=== PATIENT | female | born 1940 | race Caucasian/White ===

== ENCOUNTER 2023-02-06 15:48 | Emergency (ER) | payer MEDICARE, SELFPAY ==
--- NOTE | ~2023-02-06 | XR_ITS ---
EXAMINATION: XR CHEST CLINICAL INFORMATION: Chest pain COMPARISON: None available. TECHNIQUE: 2 views of the chest were obtained. FINDINGS: There is a biconvex thoracolumbar scoliosis present. The heart and pulmonary vessels appear normal. No infiltrates, effusions or lung masses are seen. XR/XR chest 2V IMPRESSION: No acute intrathoracic disease. Biconvex thoracolumbar scoliosis.
--- NOTE | ~2023-02-06 | XR_ITS ---
EXAMINATION: LEFT TIB-FIB, LEFT ANKLE, LEFT FOOT CLINICAL INFORMATION: Worsening diabetic ulcer medial ankle with heel ulcer and infection COMPARISON: Left ankle 08/05/2015 TECHNIQUE: 3 views left ankle, 3 views left foot, 2 views left tib-fib FINDINGS: Tib-fib: No significant bone or joint abnormality is seen. Ankle: No soft tissue swelling, fractures or dislocations are seen. No joint effusion. Left foot: Generalized osteopenia is seen. No fractures or dislocations. No bony destructive lesions seen to suggest osteomyelitis. There is a plantar calcaneal spur and an anterolisthesis at the insertion of the Achilles tendon. Findings are unchanged when compared to 08/05/2015. XR/XR ankle LT min 3V IMPRESSION: 1. No evidence of osteomyelitis. 2. Calcaneal spurs. 3. Generalized osteopenia. 4. No acute finding.
--- NOTE | ~2023-02-06 | XR_ITS ---
EXAMINATION: LEFT TIB-FIB, LEFT ANKLE, LEFT FOOT CLINICAL INFORMATION: Worsening diabetic ulcer medial ankle with heel ulcer and infection COMPARISON: Left ankle 08/05/2015 TECHNIQUE: 3 views left ankle, 3 views left foot, 2 views left tib-fib FINDINGS: Tib-fib: No significant bone or joint abnormality is seen. Ankle: No soft tissue swelling, fractures or dislocations are seen. No joint effusion. Left foot: Generalized osteopenia is seen. No fractures or dislocations. No bony destructive lesions seen to suggest osteomyelitis. There is a plantar calcaneal spur and an anterolisthesis at the insertion of the Achilles tendon. Findings are unchanged when compared to 08/05/2015. XR/XR tibia fibula LT 2V IMPRESSION: 1. No evidence of osteomyelitis. 2. Calcaneal spurs. 3. Generalized osteopenia. 4. No acute finding.
--- NOTE | ~2023-02-06 | XR_ITS ---
EXAMINATION: LEFT TIB-FIB, LEFT ANKLE, LEFT FOOT CLINICAL INFORMATION: Worsening diabetic ulcer medial ankle with heel ulcer and infection COMPARISON: Left ankle 08/05/2015 TECHNIQUE: 3 views left ankle, 3 views left foot, 2 views left tib-fib FINDINGS: Tib-fib: No significant bone or joint abnormality is seen. Ankle: No soft tissue swelling, fractures or dislocations are seen. No joint effusion. Left foot: Generalized osteopenia is seen. No fractures or dislocations. No bony destructive lesions seen to suggest osteomyelitis. There is a plantar calcaneal spur and an anterolisthesis at the insertion of the Achilles tendon. Findings are unchanged when compared to 08/05/2015. XR/XR foot LT min 3V IMPRESSION: 1. No evidence of osteomyelitis. 2. Calcaneal spurs. 3. Generalized osteopenia. 4. No acute finding.
--- NOTE | 2023-02-06 15:51 | ECG_ITS ---
Test Reason : CHEST PAIN Blood Pressure : / mmHG Vent. Rate : 088 BPM Atrial Rate : 088 BPM P-R Int : 154 ms QRS Dur : 084 ms QT Int : 334 ms P-R-T Axes : 097 030 064 degrees QTc Int : 404 ms Normal sinus rhythm Nonspecific ST abnormality Abnormal ECG When compared with ECG of 28-SEP-2017 19:22, Vent. rate has decreased BY [address] less depressed in Anterior leads Nonspecific T wave abnormality no longer evident in Inferior leads Nonspecific T wave abnormality, improved in Lateral leads Referred By: Generic ED Physician Electronically Signed By:SUMAN SEO MD
--- NOTE | 2023-02-06 16:03 | ED_ITS ---
HPI - General Adult General Chief complaint: Chest Pain Stated complaint: CP, headache, L Foot ulcer Time Seen by Provider: 02/06/23 16:25 Related Data Previous Rx's Medication Instructions Recorded doxycycline monohydrate 100 mg 100 mg PO BID cellulitis 10 days 02/06/23 capsule #20 caps Allergies Allergy/AdvReac Type Severity Reaction Status Date / Time metformin [METFORMIN] Allergy Unknown UNKNOWN Verified 02/06/23 16:10 omeprazole Allergy Unknown Unknown Verified 02/06/23 16:10 PMF Social History Social History Alcohol intake: never Smoked in Last 30 Days: No Use of substances other than those prescribed or required for medical reasons: No Advance Directives: No Advance Directives Information Provided: No Physical Exam ED Vital Signs: BMI result Body Mass Index 19.5 Course Course Course Narrative: RME - 82 yo female with history of HTN, DM, chronic foot ulcer on the left currently on amoxicillin, hx CVA, hx heart problems, who presents to the ER for evaluation of chest pain that started today. Has been under worsening stress with her son on hospice. Also has worsening ulcer on the foot w/ drainage despite being on abx. BP 209/119 w/ HR 160 in triage. Meds reviewed - not on anticoagulation, takes cardizem Plan: bring back to treatment room XR ankle to assess for osteo, labs, CXR, repeat EKG- pulse confirmed w/ palpation in triage Reevaluation(s) Reevaluation #1: see Dr. Dwyer's note for full assessment and treatment Medications Administered Discontinued Medications Generic Name Dose Route Start Last Admin Trade Name Freq PRN Reason Stop Dose Admin Bacitracin 1 appl 02/06/23 20:03 02/06/23 20:29 Bacitracin Oint 14 Gm Tube TOPICAL 02/06/23 20:04 1 appl ONCE ONE Administration Protocol Diltiazem HCl 10 mg 02/06/23 16:36 02/06/23 16:39 Diltiazem Hcl 50 Mg/10 Ml Vial IVPUSH 02/06/23 16:37 10 mg STAT STA Administration Cefazolin Sodium 1 gm/ Sodium 50 mls @ 100 mls/hr 02/06/23 18:29 02/06/23 19:39 Chloride IV 02/06/23 18:58 Infused ONCE ONE Infusion Vancomycin HCl 1,000 mg/ 270 mls @ 270 mls/hr 02/06/23 18:29 02/06/23 20:28 Sodium Chloride IV 02/06/23 19:28 Infused ONCE ONE Infusion Metoprolol Tartrate 5 mg 02/06/23 16:59 02/06/23 17:03 Metoprolol Tartrate 5 Mg/5 Ml Vial IVPUSH 02/06/23 17:00 5 mg ONCE ONE Administration Medical Decision Making Lab Data 02/06/23 16:25 02/06/23 16:25 Labs: Lab Results 02/06/23 02/06/23 02/06/23 Range/Units 16:24 16:25 16:44 WBC 7.7 (4.8-10.8) X10*3/uL RBC 3.47 L (4.20-5.50) X10*6/uL Hgb 10.4 L (12.0-16.0) g/dl Hct 32.3 L (37.0-47.0) % MCV 93.1 (80.0-98.0) fL MCH 30.0 (27.0-33.0) pg MCHC 32.2 (31.0-35.0) g/dl RDW 12.9 (11.0-16.0) % Plt Count 214 (160-400) X10*3/uL MPV 10.6 (9.4-12.3) fL Immature Gran % (Auto) 0.3 (0.0-0.4) % Neut % (Auto) 61.0 (45-73) % Lymph % (Auto) 30.9 (20-40) % [place] % (Auto) 6.8 (2-11) % Eos % (Auto) 0.7 (0-4) % Baso % (Auto) 0.3 (0-2) % Lymph # (Auto) 2.4 (1.2-4.9) X10*3/uL [place] # (Auto) 0.5 (0.1-1.2) X10*3/uL Eos # (Auto) 0.1 (0.0-0.4) X10*3/uL Baso # (Auto) 0.0 (0.0-0.2) X10*3/uL Abs Immat Gran (auto) 0.02 (0.00-0.03) X10*3/uL Absolute Neuts (auto) 4.7 (2.0-8.3) x10*3/uL Absolute Nucleated RBC 0.000 (0.0-0.012) X10*3/uL Nucleated RBC % (auto) 0.0 (0.0-0.2) /100WBC ESR 54 H (0-20) MM/HR PT 11.1 (11.1-13.3) SEC INR 0.9 (0.9-1.1) Sodium 138 (135-145) mmol/L Potassium 3.9 (3.3-5.1) mmol/L Chloride 105 (96-108) mmol/L Carbon Dioxide 23 (22-29) mmol/L Anion Gap 14 (12-20) BUN 27 H (9-16) mg/dL Creatinine 1.35 (0.5-1.4) mg/dL Estim Creat Clear Calc 26.2 Estimated GFR 38 Random Glucose 217 H (60-115) mg/dL Lactic Acid 1.0 (0.5-2.0) mmol/L Calcium 10.1 (8.4-10.2) mg/dL Magnesium 2.0 (1.6-2.6) mg/dL Total Bilirubin 0.3 (0.0-1.0) mg/dL Direct Bilirubin 0.2 (0.0-0.5) mg/dL AST 17 (5-31) U/L ALT 10 (0-31) U/L Alkaline Phosphatase 80 (39-117) U/L Troponin I High Sens 43.3 H (<3.5-17.0) ng/L Total Protein 8.7 H (6.5-8.0) g/dL Albumin 4.1 (3.5-5.0) g/dL TSH 1.16 (0.32-4.0) uIU/mL Urine Color Urine Appearance Urine pH (5.0-9.0) Ur Specific [place] (1.005-1.025) Urine Protein (Neg-Trace) mg/dL Urine Glucose (UA) (Negative) mg/dL Urine Ketones (Negative) mg/dL Urine Blood (Negative) Urine Nitrite (Negative) Ur Leukocyte Esterase (Negative) Urine RBC (0-2) /HPF Urine WBC (0-5) /HPF Ur Squamous Epith Cells (0-2) /HPF Urine Bacteria (None Seen) Hyaline Casts (0-2) /LPF 02/06/23 02/06/23 Range/Units 17:57 18:31 WBC (4.8-10.8) X10*3/uL RBC (4.20-5.50) X10*6/uL Hgb (12.0-16.0) g/dl Hct (37.0-47.0) % MCV (80.0-98.0) fL MCH (27.0-33.0) pg MCHC (31.0-35.0) g/dl RDW (11.0-16.0) % Plt Count (160-400) X10*3/uL MPV (9.4-12.3) fL Immature Gran % (Auto) (0.0-0.4) % Neut % (Auto) (45-73) % Lymph % (Auto) (20-40) % [place] % (Auto) (2-11) % Eos % (Auto) (0-4) % Baso % (Auto) (0-2) % Lymph # (Auto) (1.2-4.9) X10*3/uL [place] # (Auto) (0.1-1.2) X10*3/uL Eos # (Auto) (0.0-0.4) X10*3/uL Baso # (Auto) (0.0-0.2) X10*3/uL Abs Immat Gran (auto) (0.00-0.03) X10*3/uL Absolute Neuts (auto) (2.0-8.3) x10*3/uL Absolute Nucleated RBC (0.0-0.012) X10*3/uL Nucleated RBC % (auto) (0.0-0.2) /100WBC ESR (0-20) MM/HR PT (11.1-13.3) SEC INR (0.9-1.1) Sodium (135-145) mmol/L Potassium (3.3-5.1) mmol/L Chloride (96-108) mmol/L Carbon Dioxide (22-29) mmol/L Anion Gap (12-20) BUN (9-16) mg/dL Creatinine (0.5-1.4) mg/dL Estim Creat Clear Calc Estimated GFR Random Glucose (60-115) mg/dL Lactic Acid (0.5-2.0) mmol/L Calcium (8.4-10.2) mg/dL Magnesium (1.6-2.6) mg/dL Total Bilirubin (0.0-1.0) mg/dL Direct Bilirubin (0.0-0.5) mg/dL AST (5-31) U/L ALT (0-31) U/L Alkaline Phosphatase (39-117) U/L Troponin I High Sens 35.2 H (<3.5-17.0) ng/L Total Protein (6.5-8.0) g/dL Albumin (3.5-5.0) g/dL TSH (0.32-4.0) uIU/mL Urine Color Yellow Urine Appearance Clear Urine pH 6.5 (5.0-9.0) Ur Specific [place] 1.010 (1.005-1.025) Urine Protein 30 (1+) H (Neg-Trace) mg/dL Urine Glucose (UA) 100 H (Negative) mg/dL Urine Ketones Negative (Negative) mg/dL Urine Blood Small (1+) H (Negative) Urine Nitrite Negative (Negative) Ur Leukocyte Esterase Negative (Negative) Urine RBC 11-20 H (0-2) /HPF Urine WBC 0-5 (0-5) /HPF Ur Squamous Epith Cells 0-2 (0-2) /HPF Urine Bacteria None Seen (None Seen) Hyaline Casts 0-2 (0-2) /LPF Discharge Plan Discharge Clinical Impression: Cellulitis of foot, left, Chest pain, Regular sinus tachycardia Patient Disposition: Home, Self-Care Instructions: Chest Pain (DC), Cellulitis (DC), Tachycardia (ED) Additional Instructions: You were seen today after being found have elevated heart rate and chest pain. He does have the infection of her left foot. We got x-rays labs and medications heart rate is better controlled I think you been noncompliant with her medications. You need to take these regularly. If you have worsening chest pain or worsening flexion of the foot please return to the emergency department Prescriptions: New doxycycline monohydrate 100 mg capsule 100 mg PO BID 10 Days Qty: 20 0RF Interventions: ED Discharge Assessment Last Done: 02/06/23 20:36 Discharge Date/Time: 02/06/23 20:43
--- NOTE | 2023-02-06 16:03 | MHC.EDTECH ---
Patient ekg was taken in triage and was read by Provider .
[2023-02-06 16:04] VITALS: BP 209/119; PULSE 161; RESP 20; TEMP 36.3; O2SAT 100; BMI 19.5
--- NOTE | 2023-02-06 16:07 | ECG_ITS ---
Test Reason : SVT Blood Pressure : / mmHG Vent. Rate : 156 BPM Atrial Rate : 156 BPM P-R Int : 116 ms QRS Dur : 080 ms QT Int : 292 ms P-R-T Axes : 000 013 -55 degrees QTc Int : 470 ms Supraventricular tachycardia Nonspecific ST abnormality Abnormal QRS-T angle, consider primary T wave abnormality Abnormal ECG When compared with ECG of 06-FEB-2023 15:56, Vent. rate has increased BY [address] now depressed in Lateral leads Nonspecific T wave abnormality now evident in Inferior leads T wave amplitude has decreased in Lateral leads Referred By: Beata Treadwell Electronically Signed By:SUMAN SEO MD
--- NOTE | 2023-02-06 16:25 | ED_ITS ---
HPI - Chest Pain General Chief Complaint: Chest Pain Stated Complaint: CP, headache, L Foot ulcer Time Seen by Provider: 02/06/23 16:25 Source: patient and family Mode of arrival: ambulatory Limitations: no limitations History of Present Illness HPI narrative: 82-year-old female presents to emergency department with chest pain. She is going through issues with her son who is on hospice. She has been very anxious for the past month. Patient has been here for a week from [place]. Patient is on medications for hypertension hyperlipidemia and diabetes. She is listed to be allergic to metformin but is on it currently. Patient also has had an ulcer to her left heel for the past week. She has been under of lots of stress and didn't take her morning medications and took all her medications as she arrived here. Related Data Previous Rx's Medication Instructions Recorded doxycycline monohydrate 100 mg 100 mg PO BID cellulitis 10 days 02/06/23 capsule #20 caps Allergies Allergy/AdvReac Type Severity Reaction Status Date / Time metformin [METFORMIN] Allergy Unknown UNKNOWN Verified 02/06/23 16:10 omeprazole Allergy Unknown Unknown Verified 02/06/23 16:10 [facility] Social History Social History Alcohol intake: never Smoked in Last 30 Days: No Use of substances other than those prescribed or required for medical reasons: No Advance Directives: No Advance Directives Information Provided: No Physical Exam 2 Vital Signs: Vital Signs: Last Vital Signs Temp 98.9 F 02/06/23 16:41 Pulse 68 02/06/23 17:46 Resp 16 02/06/23 17:46 BP 159/70 H 02/06/23 17:46 Pulse Ox 98 02/06/23 17:46 O2 Del Method Room Air 02/06/23 17:46 BMI result Body Mass Index 19.5 General: Well-appearing well-nourished in no signs of distress HEENT: Normocephalic atraumatic Neck: No signs of JVD, no masses no tenderness or lymphadenopathy Cardiovascular: Irregularly irregular Respiratory: Clear to auscultation bilaterally Abdomen: Soft nontender no masses Extremities: Normal pedal pulses no signs of edema Skin: Dry warm no rashes Back: No tenderness full ROM Course Reevaluation(s) Reevaluation #1: Heart rate did not improve with the IV dose of diltiazem she is given oral and IV diltiazem done 5 mg of metoprolol and heart rate did go back to the 70s always has been in sinus tach. Patient is much more comfortable. I will continue with watching patient also had the patient on Ancef and vancomycin for the foot Reevaluation #2: 1912 repeat troponin is going down. HR improved still without chest pain. Medications Administered Discontinued Medications Generic Name Dose Route Start Last Admin Trade Name Lemuelq PRN Reason Stop Dose Admin Diltiazem HCl 10 mg 02/06/23 16:36 02/06/23 16:39 Diltiazem Hcl 50 Mg/10 Ml Vial IVPUSH 02/06/23 16:37 10 mg STAT STA Administration Cefazolin Sodium 1 gm/ Sodium 50 mls @ 100 mls/hr 02/06/23 18:29 02/06/23 19:08 Chloride IV 02/06/23 18:58 100 mls/hr ONCE ONE Administration Metoprolol Tartrate 5 mg 02/06/23 16:59 02/06/23 17:03 Metoprolol Tartrate 5 Mg/5 Ml Vial IVPUSH 02/06/23 17:00 5 mg ONCE ONE Administration Medical Decision Making Medical Decision Making [facility] Narrative: I will get a septic workup lactic blood cultures or was well as workup for cardiac and TSH. EKG one hour prior to being seen showed a HR of 88 nsr now sinus tachycardia of 156 Differential Diagnosis Differential Diagnoses: The differential diagnosis associated with the presentation includes Diabetic foot infection foot ulcer cellulitis atrial fibrillation chest pain ACS patient is not hypoxic less likely PE or pneumonia electrolyte abnormality dehydration Admission/Observation Consideration of admission/observation: Escalation of care including admission/observation considered I feel with improved troponin no more chest pain and medication non compliance I still feel she is safe to go home but educated to return if she gets worse. Consult Healthcare Provider Management of the patient was discussed with: Program Or Project Administrator Dr. Mckinney Lab Data [facility] Lab Attestation statement: I reviewed the patient's lab results. 02/06/23 16:25 02/06/23 16:25 Labs: Lab Results 02/06/23 02/06/23 02/06/23 Range/Units 16:24 16:25 16:44 WBC 7.7 (4.8-10.8) X10*3/uL RBC 3.47 L (4.20-5.50) X10*6/uL Hgb 10.4 L (12.0-16.0) g/dl Hct 32.3 L (37.0-47.0) % MCV 93.1 (80.0-98.0) fL MCH 30.0 (27.0-33.0) pg MCHC 32.2 (31.0-35.0) g/dl RDW 12.9 (11.0-16.0) % Plt Count 214 (160-400) X10*3/uL MPV 10.6 (9.4-12.3) fL Immature Gran % (Auto) 0.3 (0.0-0.4) % Neut % (Auto) 61.0 (45-73) % Lymph % (Auto) 30.9 (20-40) % [place] % (Auto) 6.8 (2-11) % Eos % (Auto) 0.7 (0-4) % Baso % (Auto) 0.3 (0-2) % Lymph # (Auto) 2.4 (1.2-4.9) X10*3/uL [place] # (Auto) 0.5 (0.1-1.2) X10*3/uL Eos # (Auto) 0.1 (0.0-0.4) X10*3/uL Baso # (Auto) 0.0 (0.0-0.2) X10*3/uL Abs Immat Gran (auto) 0.02 (0.00-0.03) X10*3/uL Absolute Neuts (auto) 4.7 (2.0-8.3) x10*3/uL Absolute Nucleated RBC 0.000 (0.0-0.012) X10*3/uL Nucleated RBC % (auto) 0.0 (0.0-0.2) /100WBC ESR 54 H (0-20) MM/HR PT 11.1 (11.1-13.3) SEC INR 0.9 (0.9-1.1) Sodium 138 (135-145) mmol/L Potassium 3.9 (3.3-5.1) mmol/L Chloride 105 (96-108) mmol/L Carbon Dioxide 23 (22-29) mmol/L Anion Gap 14 (12-20) BUN 27 H (9-16) mg/dL Creatinine 1.35 (0.5-1.4) mg/dL Estim Creat Clear Calc 26.2 Estimated GFR 38 Random Glucose 217 H (60-115) mg/dL Lactic Acid 1.0 (0.5-2.0) mmol/L Calcium 10.1 (8.4-10.2) mg/dL Magnesium 2.0 (1.6-2.6) mg/dL Total Bilirubin 0.3 (0.0-1.0) mg/dL Direct Bilirubin 0.2 (0.0-0.5) mg/dL AST 17 (5-31) U/L ALT 10 (0-31) U/L Alkaline Phosphatase 80 (39-117) U/L Troponin I High Sens 43.3 H (<3.5-17.0) ng/L Total Protein 8.7 H (6.5-8.0) g/dL Albumin 4.1 (3.5-5.0) g/dL TSH 1.16 (0.32-4.0) uIU/mL Urine Color Urine Appearance Urine pH (5.0-9.0) Ur Specific [place] (1.005-1.025) Urine Protein (Neg-Trace) mg/dL Urine Glucose (UA) (Negative) mg/dL Urine Ketones (Negative) mg/dL Urine Blood (Negative) Urine Nitrite (Negative) Ur Leukocyte Esterase (Negative) Urine RBC (0-2) /HPF Urine WBC (0-5) /HPF Ur Squamous Epith Cells (0-2) /HPF Urine Bacteria (None Seen) Hyaline Casts (0-2) /LPF 02/06/23 02/06/23 Range/Units 17:57 18:31 WBC (4.8-10.8) X10*3/uL RBC (4.20-5.50) X10*6/uL Hgb (12.0-16.0) g/dl Hct (37.0-47.0) % MCV (80.0-98.0) fL MCH (27.0-33.0) pg MCHC (31.0-35.0) g/dl RDW (11.0-16.0) % Plt Count (160-400) X10*3/uL MPV (9.4-12.3) fL Immature Gran % (Auto) (0.0-0.4) % Neut % (Auto) (45-73) % Lymph % (Auto) (20-40) % [place] % (Auto) (2-11) % Eos % (Auto) (0-4) % Baso % (Auto) (0-2) % Lymph # (Auto) (1.2-4.9) X10*3/uL [place] # (Auto) (0.1-1.2) X10*3/uL Eos # (Auto) (0.0-0.4) X10*3/uL Baso # (Auto) (0.0-0.2) X10*3/uL Abs Immat Gran (auto) (0.00-0.03) X10*3/uL Absolute Neuts (auto) (2.0-8.3) x10*3/uL Absolute Nucleated RBC (0.0-0.012) X10*3/uL Nucleated RBC % (auto) (0.0-0.2) /100WBC ESR (0-20) MM/HR PT (11.1-13.3) SEC INR (0.9-1.1) Sodium (135-145) mmol/L Potassium (3.3-5.1) mmol/L Chloride (96-108) mmol/L Carbon Dioxide (22-29) mmol/L Anion Gap (12-20) BUN (9-16) mg/dL Creatinine (0.5-1.4) mg/dL Estim Creat Clear Calc Estimated GFR Random Glucose (60-115) mg/dL Lactic Acid (0.5-2.0) mmol/L Calcium (8.4-10.2) mg/dL Magnesium (1.6-2.6) mg/dL Total Bilirubin (0.0-1.0) mg/dL Direct Bilirubin (0.0-0.5) mg/dL AST (5-31) U/L ALT (0-31) U/L Alkaline Phosphatase (39-117) U/L Troponin I High Sens 35.2 H (<3.5-17.0) ng/L Total Protein (6.5-8.0) g/dL Albumin (3.5-5.0) g/dL TSH (0.32-4.0) uIU/mL Urine Color Yellow Urine Appearance Clear Urine pH 6.5 (5.0-9.0) Ur Specific [place] 1.010 (1.005-1.025) Urine Protein 30 (1+) H (Neg-Trace) mg/dL Urine Glucose (UA) 100 H (Negative) mg/dL Urine Ketones Negative (Negative) mg/dL Urine Blood Small (1+) H (Negative) Urine Nitrite Negative (Negative) Ur Leukocyte Esterase Negative (Negative) Urine RBC 11-20 H (0-2) /HPF Urine WBC 0-5 (0-5) /HPF Ur Squamous Epith Cells 0-2 (0-2) /HPF Urine Bacteria None Seen (None Seen) Hyaline Casts 0-2 (0-2) /LPF Independent Interpretation I performed an independent interpretation of an: EKG Interpretation: Initial EKG rate 88 normal sinus rhythm normal intervals no signs of ischemia interpreted this was done about hour ago patient found a bee in AFib with RVR Discharge Plan Discharge Clinical Impression: Cellulitis of foot, left, Chest pain, Regular sinus tachycardia Patient Disposition: Home, Self-Care Instructions: Chest Pain (DC), Cellulitis (DC), Tachycardia (ED) Additional Instructions: You were seen today after being found have elevated heart rate and chest pain. He does have the infection of her left foot. We got x-rays labs and medications heart rate is better controlled I think you been noncompliant with her medications. You need to take these regularly. If you have worsening chest pain or worsening flexion of the foot please return to the emergency department Prescriptions: New doxycycline monohydrate 100 mg capsule 100 mg PO BID 10 Days Qty: 20 0RF
[2023-02-06 16:34] LABS: MANUAL DIFF FLAG NO
[2023-02-06 16:36] LABS: Basophils Percent Auto 0.3 % (0-2); Eosinophils Absolute Auto 0.1 X10*3/uL (0.0-0.4); Eosinophils Percent Auto 0.7 % (0-4); Hematocrit 32.3 % (37.0-47.0); Hemoglobin 10.4 g/dl (12.0-16.0); Imm Gran Abs Auto 0.02 X10*3/uL (0.00-0.03); Imm Gran Pct Auto 0.3 % (0.0-0.4); Lymphocytes Absolute Auto 2.4 X10*3/uL (1.2-4.9); Lymphocytes Percent Auto 30.9 % (20-40); Mean Corpuscular HGB Conc 32.2 g/dl (31.0-35.0); Mean Corpuscular Volume 93.1 fL (80.0-98.0); Mean Platelet Volume 10.6 fL (9.4-12.3); Monocytes Absolute Auto 0.5 X10*3/uL (0.1-1.2); Monocytes Percent Auto 6.8 % (2-11); Neutrophils Absolute Auto 4.7 x10*3/uL (2.0-8.3); Platelet Count 214 X10*3/uL (160-400); Red Blood Count 3.47 X10*6/uL (4.20-5.50); Red Cell Distribution Width 12.9 % (11.0-16.0); White Blood Count 7.7 X10*3/uL (4.8-10.8)
[2023-02-06] MEDS: dilTIAZem HCL 50 MG/10 ML VIAL 10 MG IVPUSH (16:39)
--- NOTE | 2023-02-06 16:40 | PC.NURSE ---
medication administered per provider order. HR immediately dropped from 150s to low 80s and then jumped back up to 150s. pt currently verbalizing sternal chest discomfort that radiates to the left side of chest. pt denies any n/headache/dizziness/lightheadedness. cultures drawn and sent to lab. family bedside for support. call burgos placed within reach.
[2023-02-06 16:41] VITALS: BP 172/114; PULSE 155; RESP 16; TEMP 37.2; O2SAT 98
[2023-02-06 16:45] LABS: INTERNATIONAL NORM RATIO 0.9 (0.9-1.1); Prothrombin Time 11.1 SEC (11.1-13.3)
[2023-02-06 16:52] LABS: Alanine Aminotransferase 10 U/L (0-31); Albumin Level 4.1 g/dL (3.5-5.0); Alkaline Phosphatase 80 U/L (39-117); Anion Gap 14 (12-20); Aspartate Amino Transferase 17 U/L (5-31); Bilirubin Direct 0.2 mg/dL (0.0-0.5); Bilirubin Total 0.3 mg/dL (0.0-1.0); Blood Urea Nitrogen 27 mg/dL (9-16); Calcium 10.1 mg/dL (8.4-10.2); Carbon Dioxide 23 mmol/L (22-29); Chloride 105 mmol/L (96-108); Creatinine Clr Calc Pharmacy 26.2; Estimated Glomerular Filt Rate 38; Glucose Random 217 mg/dL (60-115); Potassium 3.9 mmol/L (3.3-5.1); Sodium 138 mmol/L (135-145); Total Protein 8.7 g/dL (6.5-8.0)
[2023-02-06 16:59] LABS: Troponin-I High Sensitivity 43.3 ng/L (<3.5-17.0)
[2023-02-06] MEDS: Metoprolol Tartrate 5 MG/5 ML VIAL IVPUSH (17:03)
--- NOTE | 2023-02-06 17:04 | PC.NURSE ---
medication administered per provider order. pt HR currently resting between 140s-150s - will reassess.
--- NOTE | 2023-02-06 17:05 | PC.NURSE ---
medication administered per provider order. HR immediately dropped from 150s to low 80s and then jumped back up to 150s. pt currently verbalizing sternal chest discomfort that radiates to the left side. denies any n/headache/dizziness/lightheadedness. cultures drawn and sent to lab. family bedside for support. call burgos placed within reach.
--- NOTE | 2023-02-06 17:10 | PC.NURSE ---
pt currently being transported to [facility] at this time.
[2023-02-06 17:13] LABS: TSH reflex Free T4 1.16 uIU/mL (0.32-4.0)
[2023-02-06 17:24] LABS: Erythrocyte Sedimentation Rate 54 MM/HR (0-20)
[2023-02-06 17:46] VITALS: BP 159/70; PULSE 68; RESP 16; O2SAT 98
--- NOTE | 2023-02-06 18:03 | PC.NURSE ---
HR continues to rest in the 60s post medication administration. pt verbalizing no pain at this time and that the palpitations have subsided. urine obtained by tech. respirations remain even and unlabored. family bedside. call burgos placed within reach.
[2023-02-06 18:06] LABS: Appearance Urine Clear; Color Urine Yellow; Glucose Urine UA 100 mg/dL (Negative); Leukocyte Esterase Urine Negative (Negative); Nitrite Urine Negative (Negative); PH 6.5 (5.0-9.0); UMIC TRIGGER UACC YES; Urine Blood Small (1+) (Negative); Urine Ketones Negative (Negative); Urine Protein 30 (1+) mg/dL (Neg-Trace)
[2023-02-06 18:08] LABS: Bacteria Urine None Seen (None Seen); Hyaline Casts Urine 0-2 /LPF (0-2); Squamous Epithelial Cell Urine 0-2 /HPF (0-2); WBC Urine 0-5 /HPF (0-5)
--- NOTE | 2023-02-06 18:35 | PC.NURSE ---
repeat troponin obtained and sent to lab. pt aware of plan of care at this time.
[2023-02-06 19:02] LABS: Troponin-I High Sensitivity 35.2 ng/L (<3.5-17.0)
--- NOTE | 2023-02-06 19:09 | PC.NURSE ---
HR continues to remain stable at this time. abx administered per provider order. resting comfortably in no apparent distress. respirations even and unlabored. call burgos placed within reach.
[2023-02-06] MEDS: vancomycin HCL 1,000 MG in 0.9 % Sodium Chloride 250 ML 270 MG IV (19:26)
--- NOTE | 2023-02-06 19:38 | PC.NURSE ---
pt awaiting for abx to be completely infused and then will be ready for d/c.
[2023-02-06] MEDS: Bacitracin Oint 14 GM TUBE 1 APPL TOPICAL (20:29)
== END 2023-02-06 20:43 | disposition home or self-care (01) ==
PROVIDERS: Physician Assistant; Emergency Provider Student in an Organized Health Care Education/Training Program
DX: L03.116 Cellulitis of left lower limb (principal); R07.9 Chest pain, unspecified; R00.0 Tachycardia, unspecified
CPT/HCPCS: 36415; 71046; 73590; 73610; 73630; 80048; 80076; 81001; 83605; 83735; 84443; 84484; 85025; 85610; 85652; 87040; 93005; 96365; 96367; 96375; 99285; J0690; J3370